=== PATIENT | female | born 1955 | race Caucasian/White ===

== ENCOUNTER → 2017-04-24 | Outpatient (CLI) | payer OTHER ==
--- NOTE | 2017-04-24 16:44 | PCVCIMAG ---
APPROVED REPORT Study performed: 04/24/2017 08:34:31 EXAM: Comprehensive 2D, Doppler, and color-flow Echocardiogram Patient Location: Echo lab Status: routine BSA: 1.89 HR: 61 bpmBP: 144/82 mmHg Rhythm: NSR Other Information Study Quality: Adequate Risk Factors: Cardiac Risk Factors: HTN, Diabetes (non-insulin) Indications Dyspnea Chest Pain 2D Dimensions LVEF(%): 44.47 (>50%) IVSd: 12.42 (7-11mm) LVDd: 45.03 mm PWd: 10.80 (7-11mm) LVDs: 35.16 (25-40mm) Left Atrium: 47.63 (27-40mm) Aortic Root: 30.40 mm LV Single Plane 4CH: 52.04 % LV Single Plane 2CH: 52.82 %Sales's LVEF: 52.43 % Biplane EF: 52.4 % Volumes Left Atrial Volume (Systole) Single Plane 4CH: 88.82 mLSingle Plane 2CH: 78.99 mL LA ESV Index: 47.00 mL/m2 Aortic Valve AoV Peak Walter.: 1.50 m/s AO Peak Gr.: 8.96 mmHgLVOT Max P.68 mmHg LVOT Max V: 1.08 m/s Mitral Valve E/A Ratio: 1.7 MV Decel. Time: 206.33 ms MV E Max Walter.: 0.79 m/s MV A Walter.: 0.46 m/s IVRT: 96.89 ms Pulmonary Valve PV Peak Walter.: 0.93 m/sPV Peak Gr.: 3.45 mmHg Pulmonary Vein P Vein S: 0.33 m/sP Vein A: 0.33 m/s P Vein D: 0.55 m/sP Vein A Dur.: 114.2 msec P Vein S/D Ratio: 0.60 Tricuspid Valve TR Peak Walter.: 2.21 m/s TR Peak Gr.: 19.59 mmHg Left Ventricle The left ventricle is normal size. There is normal LV segmental wall motion. Mild concentric left ventricular hypertrophy. Left ventricular systolic function is normal. The left ventricular ejection fraction is within the normal range. LVEF is 55%. Grade I - abnormal relaxation pattern. Right Ventricle The right ventricle is normal size. The right ventricular systolic function is normal. Atria Left atrium is moderately dilated. The right atrium size is normal. Aortic Valve The aortic valve is normal in structure. No aortic regurgitation is present. There is no aortic valvular stenosis. Mitral Valve The mitral valve is normal in structure. Mild mitral regurgitation. No evidence of mitral valve stenosis. Tricuspid Valve The tricuspid valve is normal in structure. Trace tricuspid regurgitation with PAP of 27 mmHg. Pulmonic Valve The pulmonary valve is normal in structure. Mild pulmonic valvular regurgitation. Great Vessels The aortic root is normal in size. IVC is normal in size and collapses with >50% inspiration Pericardium There is no pericardial effusion. <Conclusion> Left ventricular systolic function is normal. The left ventricular ejection fraction is within the normal range. LVEF is 55%. Grade I - abnormal relaxation pattern. The right ventricle is normal size. Left atrium is moderately dilated. The aortic valve is normal in structure. The mitral valve is normal in structure. Trace tricuspid regurgitation with PAP of 27 mmHg. There is no pericardial effusion.
--- NOTE | 2017-04-24 16:45 | PCVCIMAG ---
APPROVED REPORT Exam: Nuclear Stress Test Indication: HTN, Elevated Cholesterol Patient Location: Out-Patient Stress Nurse: Leticia Adame RN, Sheri Pickering RN [place] Tech:James Decker NMTCB Ht: 5 ft 1 in Wt: 206 lbs BSA: 1.91 m2 HR: 67 bpm BP: 133/80 mmHg BMI: 38.9 Rhythm: NSR Medical History Medical History: Age, Hyperlipidemia, HTN, DM, Former Smoker, Medications: Xanax, ASA, Atorvastatin, Edarbi, Metoprolol, Spironolactone Allergies: HCTZ, Iodine Previous Cardiac Procedures: Heart Cath 2010 Pretest Chest Pain Characteristics: No chest pain Exercise History: Physically active DE EXAM: Myocardial Perfusion REST/STRESS Imaging Protocol: Rest Tc-99m/Stress Tc-99m 1 day Resting Data Rest SPECT myocardial perfusion imaging was performed in supine position 45 minutes following the intravenous injection of 18 mCi of Tc-99m Sestamibi. Time of rest injection: 929 Date: 04/24/2017 Pharmacologic Stress Pharmacologic stress test was performed by injecting Regadenoson 0.4 mg IV push followed by the intravenous injection of 48 mCi of Tc-99m Sestamibi. Time of stress injection: 1114 Date: 04/24/2017 The images were gated to evaluate regional wall motion and calculate left ventricular ejection fraction. Study Quality Study: Good Study Data Post stress, the left ventricular ejection was 78%.. SSS: 0 SRS: 8 SDS: 0 TID = 1.06. Perfusion No evidence of stress induced ischemia or prior myocardial infarction. Wall Motion Normal left ventricular size and function with no regional wall motion abnormalities. Nuclear Conclusion No evidence of stress induced ischemia or prior myocardial infarction. Normal left ventricular size and function with no regional wall motion abnormalities. Post stress, the left ventricular ejection was 78%.. No prior study available for comparison. Interpreted by: Dayo Machuca MD Electronically Approved: 04/24/2017 13:57:38 Stress Test Details Stress Test: Pharmacologic stress was paired with low level exercise. Reason for pharmacologic stress test: physical limitation. HR Resting HR: 67 bpmMax Heart Rate (APMHR): 156 bpm Max HR Achieved: 118 bpmTarget HR (85% APMHR): 132 bpm % of APMHR: 75 Recovery HR: 77 bpm BP Resting BP: 133/80 mmHg Max BP: 172/76 mmHg ECG Resting ECG: Sinus Rhythm Stress ECG: Sinus Tachycardia, Sinus Rhythm, NSSTT changes Recovery ECG: Sinus Rhythm Clinical Reason for Termination: Completed protocol Stress Symptoms: Dyspnea, Lightheaded Exercise duration: 4 min sec Exercise capacity: 1.6 METs Symptoms resolved with caffeine. Stress ECG Conclusion ECG: Non-ischemic <Conclusion> ECG: Non-ischemic
== END | disposition home or self-care (01) ==
LOC: PCVCIMAG 08:22
PROVIDERS: ATTEND Internal Medicine Cardiovascular Disease
DX: I08.1 Rheumatic disorders of both mitral and tricuspid valves (principal); I11.0 Hypertensive heart disease with heart failure; I50.30 Unspecified diastolic (congestive) heart failure; E78.00 Pure hypercholesterolemia, unspecified; E11.9 Type 2 diabetes mellitus without complications; K52.9 Noninfective gastroenteritis and colitis, unspecified; Z87.891 Personal history of nicotine dependence; Z95.1 Presence of aortocoronary bypass graft; Z79.84 Long term (current) use of oral hypoglycemic drugs
CPT/HCPCS: 78452; 93017; 93306; A9500

== ENCOUNTER → 2019-02-16 | Outpatient (CLI) | payer OTHER ==
--- NOTE | 2019-02-16 13:44 | PCVCIMAG ---
APPROVED REPORT Study performed: 02/16/2019 11:00:32 Exam: Stress Echocardiogram Indication: Hypertension, Diabetes Patient Location: Echo lab Stress Nurse: Sheri Pickering RN Status: routine Ht: 5 ft 1 in HR: 96 bpm BP: 140/70 mmHg Rhythm: NSR Medical History Medical History: HTN, Diabetes Exercise History: Sedentary Procedure The patient underwent an Exercise Stress Test using the Russell Protocol. Blood pressure, heart rate, and EKG were monitored. An Echocardiogram was performed by recreational therapy technician in four stages in quad fashion. At peak stress, four selected images were obtained and placed side by side with resting images for comparison. Stress Test Details Stress Test: Exercise stress testing was performed using a Russell protocol. HR Resting HR: 96 bpmMax Heart Rate (APMHR): 155 bpm Max HR Achieved: 141 bpmTarget HR (85% APMHR): 131 bpm % of APMHR: 90 Recovery HR: 97 bpm HR response to stress: Normal HR response to stress BP Resting BP: 140/70 mmHg Max BP: 152/70 mmHg Recovery BP: 108/70 mmHg BP response to stress: Normal blood pressure response to stress. ECG Resting ECG: Sinus Rhythm Stress ECG: Sinus Rhythm Recovery ECG: Sinus Rhythm Clinical Reason for Termination: Maximal effort Exercise duration: 5 min sec Highest Stage Achieved: Stage 2: 2.5 mph at 12% grade. Exercise capacity: 7.00 METs Overall Exercise Capacity for Age: Poor Pre-Stress Echo The resting Echocardiogram showed normal left ventricular contractility with an estimated Ejection Fraction of about 55-60%. Normal wall motion in all segments on baseline images. Post-Stress Echo The stress Echocardiogram showed normal left ventricular contractility with an estimated Ejection Fraction of about 60-65%. Normal augmentation of wall motion in all segments on post stress images. Clinical No clinical or ECG evidence for ischemia. Conclusion Clinical Response: Non-ischemic Exercise Capacity: Below Average Stress ECG Response: Non-ischemic Stress Echo Images: Non-ischemic The left ventricle is normal in size and wall thickness in both the rest and stress images. Other Information Study Quality: Adequate <Conclusion> The left ventricle is normal in size and wall thickness in both the rest and stress images.
== END | disposition home or self-care (01) ==
LOC: PCVCIMAG 10:39
PROVIDERS: ATTEND Internal Medicine Cardiovascular Disease
DX: I11.0 Hypertensive heart disease with heart failure (principal); I50.32 Chronic diastolic (congestive) heart failure; E11.9 Type 2 diabetes mellitus without complications; E78.5 Hyperlipidemia, unspecified; G47.30 Sleep apnea, unspecified; Z91.041 Radiographic dye allergy status; Z88.2 Allergy status to sulfonamides
CPT/HCPCS: 93325; 93351